=== PATIENT | female | born 1960 | race Caucasian/White ===

== ENCOUNTER 2016-09-03 12:25 | Emergency (ER) | payer OTHER ==
[2016-09-03 13:32] LABS: BASOPHIL 0.2 % (0-2); EOSINOPHIL 0.4 % (0-5); HCT 42.1 % (37.0-47.0); HGB 14.7 g/dl (12.5-16.0); LYMPHOCYTE 20.7 % (15-48); MCH 31.5 pg (25.0-31.0); MCHC 34.9 g/dL (32.0-36.0); MCV 90.1 fL (78.0-100.0); MONOCYTE 5.9 % (0-12); MPV 8.8 fL (6.0-9.5); NEUTROPHIL 72.8 % (41-80); PLT 371 K/uL (150-400); RBC 4.67 M/uL (4.20-5.40); RDW 12.2 % (11.5-14.0); WBC 11.6 K/uL (4.0-10.5)
[2016-09-03 13:47] LABS: BILIRUBIN - TOTAL 0.5 mg/dL (0.1-1.0); CREATININE 0.4 mg/dL (0.5-1.0); GLOBULIN (CALCULATION) 3.4 g/dL (2.2-4.2); POTASSIUM 3.7 mmol/L (3.5-5.1); TOTAL PROTEIN 8.4 g/dL (6.4-8.3)
== END 2016-09-03 15:56 | disposition home or self-care (01) ==
LOC: FER 12:25
PROVIDERS: Internal Medicine
DX: R42 Dizziness and giddiness (principal); F41.9 Anxiety disorder, unspecified; F32.9 Major depressive disorder, single episode, unspecified; Z79.899 Other long term (current) drug therapy
CPT/HCPCS: 36415; 70450; 80053; 85025; J2060